=== PATIENT | female | born 1950 | race Caucasian/White ===

== ENCOUNTER 2016-11-05 12:42 | Day surgery (SDC) | payer OTHER, MEDICARE ==
[~2016-11-05] VITALS: Ht 167.6 cm; Wt 99.8 kg
[~2016-11-05 12:42] MED LIST: 0.9% Sodium Chloride 1,000 ML IV SCH; ALBUINHPP INH; DEXL60CA3 PO; FEXO180T PO; FLO110 IH; FLUT16SP; LOSA50TA37 PO; PRE20 PO; Sodium Chloride LOK Flush 10 mL Syringe IV PRN; fentaNYL-PF 50 mCg/mL 2 mL Inj IVPUSH PRN
[2016-11-05] MEDS ORDERED: SYN75 PO (13:55)
[2016-11-05 13:56] VITALS: BP 138/88; PULSE 77; O2SAT 97
[2016-11-05 15:07] VITALS: BP 142/81; PULSE 80; RESP 14; O2SAT 94
[2016-11-05 15:17] VITALS: BP 144/97; PULSE 79; RESP 14; O2SAT 93
[2016-11-05 15:20] VITALS: BP 128/71; PULSE 80; RESP 16; O2SAT 95
--- NOTE | 2016-11-06 02:16 | ENDO ---
[address] [address] ENDOSCOPY PROCEDURE PATIENT: LORY HAYNES : 1950 MR#: [id number] ADMIT: 11/05/2016 JOB ID: [id number] DATE OF PROCEDURE: 11/05/2016 PRIMARY PROVIDER: Iris Ahmadi MD. PROCEDURE: Esophagogastroduodenoscopy with biopsies. INDICATIONS: A 66-year-old female with a history of short-segment Samson's. EQUIPMENT: GIF-H190. SEDATION: 1. Versed 9 mg. 2. Fentanyl 150 mcg. COMPLICATIONS: None identified. PROCEDURE INFORMATION: After the risks and benefits were explained, written and verbal informed consent was obtained. The patient was brought into the endoscopy suite and placed into the left lateral decubitus position. Sedation was achieved as above. The scope was introduced in the mouth through the bite block and advanced under direct visualization through the oropharynx, esophagus, stomach, and onto the second portion of the duodenum. The scope was slowly withdrawn to carefully examine the mucosa for any defects or lesions. Retroflexed views were accomplished in the stomach. The stomach was decompressed. The scope was removed from the patient who tolerated the procedure well. FINDINGS: 1. Duodenum: This appeared visually normal from the bulb through to the second portion. 2. Stomach: The patient had mild diffuse nonspecific gastropathy throughout. No ulcers, erosions or mass lesions. No outlet obstruction. A small, perhaps 4 mm, polyp was removed with cold forceps and submitted for histopathology/exclusion of Helicobacter infection. Retroflexed views of the LES disclosed a small sliding hiatal hernia. 3. Esophagus: The squamocolumnar junction generally correlated with the top of the gastric folds. The GE junction was judged to be at approximately 37 cm from the incisors. There were a couple of very subtle tongues of probable Samson's in the nine o'clock and two o'clock location. These were targeted for biopsy x2 and submitted for histopathology. This would be judged C0 M0.5-1 Samson's. I did not see any nodularity. No acute inflammation. No strictures. No concerning pathology within the segment. ENDOSCOPIC DIAGNOSES: 1. Sliding hiatal hernia. 2. Short-segment Smason's. 3. Gastropathy. 4. Diminutive gastric polyp. RECOMMENDATIONS: 1. Await histopathology. 2. Continue anti-reflux therapy. 3. If nondysplastic Samson's is confirmed, repeat EGD for surveillance in three years.
--- NOTE | 2016-11-07 11:14 | PATH ---
SURGICAL PATHOLOGY Attending Physician:Jan Holguin CASE STATUS: Signed Out PATIENT NAME: LORY HAYNES PID: [id number] : 1950 DATE COLLECTED:11/05/2016 00:00 SPECIMEN: 1: Stomach, Polyp, Biopsy 2: Esophagus, Biopsy CLINICAL HISTORY: 1. GASTRIC POLYPS 2. DISTAL ESOPHAGUS FINAL DIAGNOSIS: 1. Gastric Polyps: Benign fundic gland polyp, negative for atypia. 2. Biopsies, Distal Esophagus: Fragments of squamous mucosa and gastric cardia-type mucosa positive for specialized metaplasia of Samson's-type esophagus. Chronic inflammation with reactive epithelial changes, but negative for dysplasia and malignancy. Eosinophils are not increased. ICD10 K22.70 GROSS DESCRIPTION: The specimen is received in two formalin filled containers labeled with the patient's name. 1). The specimen is sublabeled "gastric polyps" and consists of a 0.3 x 0.3 x 0.2 CM portion of tissue which is entirely submitted in cassette 1A. 2). The specimen is sublabeled "distal esophagus" and consists of 2 portions of tissue which aggregate to 0.3 x 0.3 x 0.2 CM. The specimen is entirely submitted in cassette 2A. 11/06/2016 [facility] ICD-9 CODES: CPT CODES: 1: 56278 2: 17970 Electronically Signed Out Jorje Miller MD [facility] Pathology [facility] [address] [place] [address] Technical component performed at [facility], [facility] [address], [place], [address]
== END 2016-11-05 23:59 | disposition home or self-care (01) ==
LOC: END 12:42
PROVIDERS: ATTEND Internal Medicine Gastroenterology
DX: K22.70 Barrett's esophagus without dysplasia (principal); K31.7 Polyp of stomach and duodenum; K44.9 Diaphragmatic hernia without obstruction or gangrene; I10 Essential (primary) hypertension; J45.909 Unspecified asthma, uncomplicated
CPT/HCPCS: 43239; 99153; G0500; J2250; J7030